=== PATIENT | male | born 2000 | race African-American/Black ===

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

== ENCOUNTER 2020-04-30 15:14 | Inpatient (IN) ==
[2020-04-30 16:50] LABS: Urine Appearance Clear; Urine Bilirubin Negative (Negative); Urine Blood Negative (Negative); Urine Color Amber; Urine Glucose Negative (Negative); Urine Ketones Trace (Negative); Urine Nitrite Negative (Negative); Urine Protein 2+(100 mg/dL) (Negative); Urine Specific Gravity 1.033 (1.010-1.030); Urine Urobilinogen Positive (Negative)
[2020-04-30 16:54] LABS: Urine Bacteria Absent (Absent); Urine Red Blood Cell Trace(0-2/hpf) (Absent); Urine Squamous Epithelial Cell Present (Absent); Urine White Blood Cell Trace(0-5/hpf) (Absent)
[2020-04-30 17:39] LABS: Urine Benzodiazepine Screen None Detected (None Detect); Urine Cannabinoids Screen Presumptive Positive (None Detect); Urine Opiates Screen None Detected (None Detect)
[2020-04-30] MEDS ORDERED: Al Hydrox/Mg Hydrox/Simet LIQ 30 ML UDC PO PRN (23:36)
[2020-05-01] MEDS: Vitamin THERAPEUTIC TAB PO SCH (08:40)
[2020-05-02 08:37] LABS: HDL Cholesterol 62.4 mg/dL
[2020-05-02] MEDS: Vitamin THERAPEUTIC TAB PO SCH (08:46)
[2020-05-03] MEDS: Vitamin THERAPEUTIC TAB PO SCH (07:57)
[2020-05-04] MEDS: Vitamin THERAPEUTIC TAB PO SCH (08:29)
[2020-05-04 08:46] VITALS: BP 132/69
== END 2020-05-04 11:15 | disposition home or self-care (01) | DRG 880 ==
LOC: ED 15:14 → BSU 22:00
PROVIDERS: ADMIT Psychiatry & Neurology Psychiatry; ATTEND Psychiatry & Neurology Psychiatry

== ENCOUNTER 2020-05-31 15:00 | Inpatient (IN) ==
[2020-05-31 16:31] LABS: ABS Basophils 0.1 10^3/ul (0-0.2); ABS Eosinophils 0.1 10^3/ul (0-0.6); ABS Lymphocytes 2.3 10^3/ul (1.0-4.8); ABS Monocytes 0.9 10^3/ul (0-0.8); Eosinophil % 0.8 %; Hematocrit 43 % (42-52); Hemoglobin 14.7 g/dL (14.0-18.0); Mean Corpuscular HGB Conc 34 g/dL (31-36); Mean Corpuscular Hemoglobin 33 pg (27-31); Mean Corpuscular Volume 96 fL (80-94); Mean Platelet Volume 10.9 fL (7.4-10.4); Nucleated Red Blood Cells % 0.1; Platelet Count 164 10^3/uL (150-450); Red Blood Count 4.48 10^6 /uL (4.18-5.48); Red Cell Distribution Width 13 % (10-15); White Blood Count 9.3 10^3/uL (3.5-10.8)
[2020-05-31 16:34] LABS: Urine Appearance Clear; Urine Bilirubin Negative (Negative); Urine Blood Negative (Negative); Urine Color Yellow; Urine Glucose Negative (Negative); Urine Ketones 1+ (Negative); Urine Nitrite Negative (Negative); Urine Protein 1+(30 mg/dL) (Negative); Urine Specific Gravity 1.032 (1.010-1.030); Urine Urobilinogen Positive (Negative)
[2020-05-31 16:50] LABS: ALT 22 U/L (7-52); AST 29 U/L (13-39); Albumin 4.7 g/dL (3.2-5.2); Albumin/Globulin Ratio 1.5 (1-3); Alkaline Phosphatase 57 U/L (34-104); Anion Gap 11 mmol/L (2-11); BUN/Creatinine Ratio 17.3 (8-20); Blood Urea Nitrogen 13 mg/dL (6-24); CO2 Carbon Dioxide 20 mmol/L (22-32); Calcium 9.7 mg/dL (8.6-10.3); Chloride 103 mmol/L (101-111); EGFR African American 160.7 (>60); EGFR Non-African American 132.8 (>60); Globulin 3.1 g/dL (2-4); Glucose 94 mg/dL (70-100); Potassium 3.3 mmol/L (3.5-5.0); Sodium 134 mmol/L (135-145); Total Protein 7.8 g/dL (6.4-8.9)
[2020-05-31 16:53] LABS: Urine Benzodiazepine Screen None Detected (None Detect); Urine Cannabinoids Screen Presumptive Positive (None Detect); Urine Opiates Screen None Detected (None Detect)
[2020-05-31 17:02] LABS: Urine Bacteria Absent (Absent); Urine Red Blood Cell Absent (Absent); Urine White Blood Cell Absent (Absent)
[2020-05-31 17:15] LABS: Acetaminophen < 15 mcg/mL; Alcohol, S < 10 mg/dL (<10); Salicylate < 2.50 mg/dL (<30)
[2020-05-31] MEDS ORDERED: Potassium Chlor 20 meq TAB.ER PO ONE (17:28)
[2020-05-31 17:30] LABS: TSH Ultra Thyroid Stim Horm 1.39 mcIU/mL (0.34-5.60)
[2020-05-31] MEDS ORDERED: Al Hydrox/Mg Hydrox/Simet LIQ 30 ML UDC PO PRN (22:57)
[2020-06-01] MEDS: Vitamin THERAPEUTIC TAB PO SCH (09:56)
[2020-06-02 08:10] LABS: HDL Cholesterol 72.7 mg/dL
[2020-06-02] MEDS: Vitamin THERAPEUTIC TAB PO SCH (09:12)
[2020-06-03] MEDS: Vitamin THERAPEUTIC TAB PO SCH (08:30)
[2020-06-03 09:21] VITALS: BP 142/88
== END 2020-06-03 11:30 | disposition home or self-care (01) | DRG 897 ==
LOC: ED 15:00 → BSU 21:28
PROVIDERS: ADMIT Psychiatry & Neurology Psychiatry; ATTEND Psychiatry & Neurology Psychiatry